=== PATIENT | female | born 1955 | race Caucasian/White ===

== ENCOUNTER 2021-11-11 13:43 | Emergency (ER) | payer OTHER ==
[~2021-11-11] VITALS: Ht 165.1 cm; Wt 63.5 kg
[~2021-11-11 13:43] MED LIST: INTESTINEX1 CAP PO; ZANTAC150 MG PO
[2021-11-11] MEDS ORDERED: HUMALOG100 UNIT/2 SQ (14:34)
[2021-11-11] MEDS ORDERED: LANTUS SOL100 UNIT/1 IJ (14:34)
[2021-11-11] MEDS ORDERED: AZITHROMYCIN1 GM PO (18:50)
[2021-11-11] MEDS ORDERED: DOLOGEN 325-11 EACH PO (18:50)
[2021-11-11] MEDS ORDERED: TUSNEL DIABETI118 ML PO (18:50)
== END 2021-11-11 19:33 | disposition home or self-care (01) ==
LOC: ER 13:43
DX: J06.9 Acute upper respiratory infection, unspecified (principal); R05.8 Other specified cough; Z20.822 Contact with and (suspected) exposure to COVID-19